=== PATIENT | female | born 1965 | race African-American/Black ===

== ENCOUNTER 2025-03-13 09:49 | Emergency (ER) | payer OTHER, MEDICAID ==
[~2025-03-13] VITALS: Ht 170.2 cm; Wt 81.8 kg
[2025-03-13 09:53] VITALS: TEMP 97.7
[2025-03-13] MEDS: LIDOCAINE 5% TRANSDERMAL PATCH TD ONE (13:12)
[2025-03-13] MEDS: IBUPROFEN 600 MG TABLET PO ONE (13:12)
[2025-03-13] MEDS ORDERED: ACET-2247 PO (14:57)
[2025-03-13] MEDS ORDERED: IBUP-1492 PO (14:57)
[2025-03-13 15:24] VITALS: BP 122/76; PULSE 75; RESP 18; O2SAT 98
== END 2025-03-13 15:26 | disposition home or self-care (01) ==
LOC: EMS 09:54
DX: M54.50 Low back pain, unspecified (principal); M25.531 Pain in right wrist; M25.532 Pain in left wrist; V29.99XA Rider (driver) (passenger) of other motorcycle injured in unspecified traffic accident, initial encounter; Y93.89 Activity, other specified; Y92.410 Unspecified street and highway as the place of occurrence of the external cause; Y99.8 Other external cause status
CPT/HCPCS: 72131; 99284